=== PATIENT | male | born 1950 | race Caucasian/White ===

== ENCOUNTER 2018-12-03 12:41 | Emergency (ER) | payer OTHER ==
[2018-12-03 12:50] VITALS: BP 170/81; PULSE 76; TEMP 98.1
--- NOTE | 2018-12-03 13:02 | ED ---
Male Urogenital HPI - General Chief complaint: Urogenital Stated complaint: Trouble urinating Time Seen by Provider: 12/03/18 12:51 Source: patient, RN notes reviewed Mode of arrival: ambulatory Limitations: no limitations - History of Present Illness Initial comments: 68-year-old male presents emergency Department with chief complaint of difficulty urinating. Patient had decreased urine output as far as urine flow. Patient states he has hesitancy. He does admit that he's had a prior prostate cancer which she had radiation therapy. Patient states that he used to be on Flomax with is not currently on it. Patient called his physician who recommended cold emergency Department secondary to his symptoms. Patient states that he has not seen his urology physician [facility] [employer] [facility] cancer because he had a normal checkup. Patient states that he was seen Dr. della treviño. Patient denies any abdominal distention, nausea vomiting diarrhea constipation. - Related Data Home Medications Medication Instructions Recorded Confirmed Ferrous Sulfate [Iron] 325 mg PO BID 12/03/18 12/03/18 Previous Rx's Medication Instructions Recorded Sulfamethox-Tmp 800-160Mg [Bactrim 1 each PO Q12HR #14 tab 12/03/18 Ds] Tamsulosin [Flomax] 0.4 mg PO DAILY #14 cap 12/03/18 Allergies Allergy/AdvReac Type Severity Reaction Status Date / Time Penicillins Allergy Unknown Verified 12/03/18 13:49 Childhood Review of Systems ROS Statement: Those systems with pertinent positive or pertinent negative responses have been documented in the HPI. ROS Other: All systems not noted in ROS Statement are negative. Past Medical History Past Medical History: Cancer Additional Past Medical History / Comment(s): prostate CA 15 yrs ago, anemia History of Any Multi-Drug Resistant Organisms: None Reported Past Surgical History: Orthopedic Surgery Additional Past Surgical History / Comment(s): left shoulder Past Psychological History: No Psychological Hx Reported Smoking Status: Never smoker Past Alcohol Use History: None Reported Past Drug Use History: None Reported General Exam Limitations: no limitations General appearance: alert, in no apparent distress Head exam: Present: atraumatic, normocephalic, normal inspection Neck exam: Present: normal inspection. Absent: tenderness, meningismus, lymphadenopathy Respiratory exam: Present: normal lung sounds bilaterally. Absent: respiratory distress, wheezes, rales, rhonchi, stridor Cardiovascular Exam: Present: regular rate, normal rhythm, normal heart sounds. Absent: systolic murmur, diastolic murmur, rubs, gallop, clicks GI/Abdominal exam: Present: soft, normal bowel sounds. Absent: distended, tenderness, guarding, rebound, rigid Back exam: Absent: CVA tenderness (R), CVA tenderness (L) Skin exam: Present: warm, dry, intact, normal color. Absent: rash Course Vital Signs 12/03/18 12:46 Temperature 98.1 F Pulse Rate 76 Respiratory 18 Rate Blood Pressure 170/81 O2 Sat by Pulse 98 Oximetry Medical Decision Making - Medical Decision Making 68-year-old male presents emergency Department for increased urinary frequency. Patient most likely is underlying BPH issues. Patient be restarted on his Flomax and he also had a white cells concerning for possible urinary tract infection. Patient placed on antibiotics for 7 days and will follow-up with urology. Return parameters were discussed. Patient had minimal residual bladder scan - Lab Data Lab Results 12/03/18 Range/Units 13:05 Urine Color Yellow Urine Appearance Clear (Clear) Urine pH 6.0 (5.0-8.0) Ur Specific [place] 1.024 (1.001-1.035) Urine Protein Negative (Negative) Urine Glucose (UA) Negative (Negative) Urine Ketones Negative (Negative) Urine Blood Negative (Negative) Urine Nitrite Negative (Negative) Urine Bilirubin Negative (Negative) Urine Urobilinogen <2.0 (<2.0) mg/dL Ur Leukocyte Esterase Trace H (Negative) Urine RBC 1 (0-5) /hpf Urine WBC 8 H (0-5) /hpf Urine Mucus Rare H (None) /hpf Disposition Clinical Impression: Polyuria, UTI (urinary tract infection), BPH (benign prostatic hyperplasia) Disposition: HOME SELF-CARE Condition: Stable Instructions (If sedation given, give patient instructions): Urinary Tract Infection in Men (ED) Additional Instructions: Please return to the Emergency Department if symptoms worsen or any other concerns. Prescriptions: Sulfamethox-Tmp 800-160Mg [Bactrim Ds] 1 each PO Q12HR #14 tab Tamsulosin [Flomax] 0.4 mg PO DAILY #14 cap Is patient prescribed a controlled substance at d/c from ED?: No Referrals: Henrry Palacio DO [Primary Care Provider] - 1-2 days Time of Disposition: 13:51
[2018-12-03 13:35] LABS: Appearance,Urine Clear (Clear); Bilirubin,Urine Negative (Negative); Blood,Urine Negative (Negative); Color,Urine Yellow; Glucose,Urine (UA) Negative (Negative); Ketones,Urine Negative (Negative); Leukocyte Esterase,Urine Trace (Negative); Mucus,Urine Rare /hpf; Nitrite,Urine Negative (Negative); Protein,Urine Negative (Negative); RBC,Urine 1 /hpf (0-5); Specific Gravity,Urine 1.024 (1.001-1.035); Urobilinogen,Urine <2.0 mg/dL (<2.0)
[2018-12-03] MEDS ORDERED: TAMSULOSIN 0.4 MG CAP.ER.24H PO STA (13:51)
[2018-12-03 14:09] VITALS: RESP 16
== END 2018-12-03 14:05 | disposition home or self-care (01) ==
LOC: EC 12:41
DX: N40.0 Benign prostatic hyperplasia without lower urinary tract symptoms (principal); N39.0 Urinary tract infection, site not specified; R35.8 Other polyuria; D64.9 Anemia, unspecified; Z85.46 Personal history of malignant neoplasm of prostate; Z79.899 Other long term (current) drug therapy; Z88.0 Allergy status to penicillin
CPT/HCPCS: 81001; 99284

== ENCOUNTER 2018-12-31 03:55 | Emergency (ER) | payer OTHER, MEDICARE ==
[2018-12-31 04:03] VITALS: TEMP 98.5
[2018-12-31 04:59] LABS: Appearance,Urine Clear (Clear); Bilirubin,Urine Negative (Negative); Blood,Urine Negative (Negative); Color,Urine Yellow; Glucose,Urine (UA) Negative (Negative); Ketones,Urine Negative (Negative); Leukocyte Esterase,Urine Negative (Negative); Nitrite,Urine Negative (Negative); PH, Urine 5.5 (5.0-8.0); Protein,Urine Negative (Negative); Specific Gravity,Urine 1.019 (1.001-1.035); Urobilinogen,Urine <2.0 mg/dL (<2.0)
--- NOTE | 2018-12-31 05:03 | ED ---
General Adult HPI - General Chief complaint: Urogenital Stated complaint: Male Time Seen by Provider: 12/31/18 04:17 Source: patient Mode of arrival: ambulatory Limitations: no limitations - History of Present Illness Initial comments: Dictation was produced using [employer] dictation software. please excuse any grammatical, word or spelling errors. 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 History of Present Illness: She is 68-year-old male who has past medical history of prostate cancer. Approximately 10 years ago he began having problems with urinary retention. He is a patient of Dr. Bakari rico. Patient seen Dr. Nesbitt 3 weeks ago. Discussion was had with urologist for possible intervention to open urethral versus bladder constriction. Over the last 2-3 days patient has been having worsening urinary retention. Discusses that he had a episode where he had to go under anesthesia in order for Alba catheter to be placed. Patient reports he still able to get some urine out with Valsalva maneuver. The ROS documented in this emergency department record has been reviewed and confirmed by me. Those systems with pertinent positive or negative responses have been documented in the HPI. All other systems are other negative and/or noncontributory. PHYSICAL EXAM: General Impression: Alert and oriented x3, not in acute distress HEENT: Normocephalic atraumatic, extra-ocular movements intact, pupils equal and reactive to light bilaterally, mucous membranes moist. Cardiovascular: Heart regular rate and rhythm, S1&S2 audible, no murmurs, rubs or gallops Chest: Lungs clear to auscultation bilaterally, no rhonchi, no wheeze, no rales Abdomen: Suprapubic fullness Musculoskeletal: Pulses present and equal in all extremities, no peripheral edema Motor: no focal deficits noted Neurological: CN II-XII grossly intact, no focal motor or sensory deficits noted Skin: Intact with no visualized rashes Psych: Normal affect and mood ED course: 68-year-old male past medical history of prostate disease presents with urinary retention. Vital signs upon arrival are within acceptable limits. Blood pressure is measured at 192/95. Bladder scan was performed showing approximately 350 mL of retained urine. Attempt was made to place Alba catheter. 16-Persian Alba catheter was placed with no success. 16 coud and 14 coud was attempted with no success. Discussed patient case with Dr. Moran who will attempt to place Alba catheter at bedside. Patient gives signed out to Dr. Cao. Dr. Moran is seen at bedside. - Related Data Home Medications Medication Instructions Recorded Confirmed Ferrous Sulfate [Iron] 325 mg PO BID 12/03/18 12/31/18 Previous Rx's Medication Instructions Recorded Tamsulosin [Flomax] 0.4 mg PO DAILY #14 cap 12/03/18 Allergies Allergy/AdvReac Type Severity Reaction Status Date / Time Penicillins Allergy Unknown Verified 12/31/18 04:03 Childhood Review of Systems ROS Statement: Those systems with pertinent positive or pertinent negative responses have been documented in the HPI. ROS Other: All systems not noted in ROS Statement are negative. Past Medical History Past Medical History: Cancer Additional Past Medical History / Comment(s): prostate CA 15 yrs ago, anemia History of Any Multi-Drug Resistant Organisms: None Reported Past Surgical History: Orthopedic Surgery Additional Past Surgical History / Comment(s): left shoulder Past Psychological History: No Psychological Hx Reported Smoking Status: Former smoker Past Alcohol Use History: None Reported Past Drug Use History: None Reported General Exam Limitations: no limitations Course Vital Signs 12/31/18 12/31/18 03:58 06:54 Temperature 98.5 F 98.5 F Pulse Rate 92 73 Respiratory 20 18 Rate Blood Pressure 192/95 153/84 O2 Sat by Pulse 97 95 Oximetry Medical Decision Making - Lab Data Result diagrams: 12/31/18 05:45 Lab Results 12/31/18 12/31/18 Range/Units 04:20 05:45 Sodium 140 (137-145) mmol/L Potassium 4.3 (3.5-5.1) mmol/L Chloride 110 H (98-107) mmol/L Carbon Dioxide 21 L (22-30) mmol/L Anion Gap 9 mmol/L BUN 12 (9-20) mg/dL Creatinine 0.79 (0.66-1.25) mg/dL Est GFR (CKD-EPI)AfAm >90 (>60 ml/min/1.73 sqM) Est GFR (CKD-EPI)NonAf >90 (>60 ml/min/1.73 sqM) Glucose 124 H (74-99) mg/dL Calcium 9.3 (8.4-10.2) mg/dL Urine Color Yellow Urine Appearance Clear (Clear) Urine pH 5.5 (5.0-8.0) Ur Specific [place] 1.019 (1.001-1.035) Urine Protein Negative (Negative) Urine Glucose (UA) Negative (Negative) Urine Ketones Negative (Negative) Urine Blood Negative (Negative) Urine Nitrite Negative (Negative) Urine Bilirubin Negative (Negative) Urine Urobilinogen <2.0 (<2.0) mg/dL Ur Leukocyte Esterase Negative (Negative) Disposition Referrals: Henrry Palacio DO [Primary Care Provider] - 1-2 days
[2018-12-31 06:12] LABS: African American GFR (CKD) >90 (>60 ml/min/1.73 sqM); Anion Gap 9 mmol/L; Blood Urea Nitrogen 12 mg/dL (9-20); Calcium 9.3 mg/dL (8.4-10.2); Carbon Dioxide 21 mmol/L (22-30); Chloride 110 mmol/L (98-107); Glucose 124 mg/dL (74-99); Potassium 4.3 mmol/L (3.5-5.1); Sodium 140 mmol/L (137-145)
[2018-12-31 06:55] VITALS: BP 153/84; PULSE 73; RESP 18
--- NOTE | 2018-12-31 07:31 | P.GSCN ---
History of Present Illness Consult date: 12/31/18 Reason for Consult: Urinary retention and inability to insert Alba catheter History of present illness: The patient is a 68-year-old male with a history of increasing difficulty voiding for the last 2 or 3 days. He says that he was unable to void anything other than very small amounts yesterday evening and came to the emergency room for evaluation. Urinalysis was unremarkable. Attempts were made to insert a 16-Chilean and a 14-Chilean coud catheter but the emergency room staff was unable to perform this . Bladder scan showed approximately 400 mL in the bladder. I was contacted to evaluate the patient. The patient is well known to me and was last seen by me 2 or 3 weeks ago in the office. He has a history of prostate cancer treated with a combination of external beam radiation therapy and brachytherapy around 2004. I believe he may have had a urethral stricture that required either dilation or internal urethrotomy several years later. When seen by me in the office 2 or 3 weeks ago he was complaining of a slow urinary flow and was started on tamsulosin 0.4 mg daily. He says that this has not been particularly helpful. Prior to the last 2 or 3 days patient said that he had been voiding every 1-1/2 hours during the day and night. He denied any gross hematuria or dysuria. He says that his urine flow was actually relatively good 6 months ago. Review of Systems - Constitutional Denies chills, Denies fever - Gastrointestinal Reports as per HPI, Denies change in bowel habits - Genitourinary Reports as per HPI Past Medical History Past Medical History: Cancer Additional Past Medical History / Comment(s): prostate CA 15 yrs ago-treated with external beam radiation therapy and brachytherapy, anemia History of Any Multi-Drug Resistant Organisms: None Reported Past Surgical History: Orthopedic Surgery Additional Past Surgical History / Comment(s): left shoulder Past Psychological History: No Psychological Hx Reported Smoking Status: Former smoker Past Alcohol Use History: None Reported Past Drug Use History: None Reported Medications and Allergies Home Medications Medication Instructions Recorded Confirmed Type Ferrous Sulfate [Iron] 325 mg PO BID 12/03/18 12/31/18 History Tamsulosin [Flomax] 0.4 mg PO DAILY #14 cap 12/03/18 12/31/18 Rx Allergies Allergy/AdvReac Type Severity Reaction Status Date / Time Penicillins Allergy Unknown Verified 12/31/18 04:03 Childhood Surgical - Exam Vital Signs Temp Pulse Resp BP Pulse Ox 98.5 F 92 20 192/95 97 12/31/18 03:58 12/31/18 03:58 12/31/18 03:58 12/31/18 03:58 12/31/18 03:58 - General well developed, well nourished, moderate pain - ENT no hearing loss - Respiratory normal respiratory effort - Abdomen Abdomen: soft, tender (Suprapubic area) - Genitourinary normal penis with no external lesions, testicles non-tender Results - Labs 12/31/18 05:45 Abnormal Lab Results - Last 24 Hours (Table) 12/31/18 Range/Units 05:45 Chloride 110 H (98-107) mmol/L Carbon Dioxide 21 L (22-30) mmol/L Glucose 124 H (74-99) mg/dL Diabetes panel 12/31/18 Range/Units 05:45 Sodium 140 (137-145) mmol/L Potassium 4.3 (3.5-5.1) mmol/L Chloride 110 H (98-107) mmol/L Carbon Dioxide 21 L (22-30) mmol/L BUN 12 (9-20) mg/dL Creatinine 0.79 (0.66-1.25) mg/dL Glucose 124 H (74-99) mg/dL Calcium 9.3 (8.4-10.2) mg/dL Calcium panel 12/31/18 Range/Units 05:45 Calcium 9.3 (8.4-10.2) mg/dL Pituitary panel 12/31/18 Range/Units 05:45 Sodium 140 (137-145) mmol/L Potassium 4.3 (3.5-5.1) mmol/L Chloride 110 H (98-107) mmol/L Carbon Dioxide 21 L (22-30) mmol/L BUN 12 (9-20) mg/dL Creatinine 0.79 (0.66-1.25) mg/dL Glucose 124 H (74-99) mg/dL Calcium 9.3 (8.4-10.2) mg/dL Adrenal panel 12/31/18 Range/Units 05:45 Sodium 140 (137-145) mmol/L Potassium 4.3 (3.5-5.1) mmol/L Chloride 110 H (98-107) mmol/L Carbon Dioxide 21 L (22-30) mmol/L BUN 12 (9-20) mg/dL Creatinine 0.79 (0.66-1.25) mg/dL Glucose 124 H (74-99) mg/dL Calcium 9.3 (8.4-10.2) mg/dL Assessment and Plan (1) Urinary retention Narrative/Plan: The cause of the patient's urinary retention is not clear. I was able to successfully insert a 14-Chilean coud catheter which drained between 400 and 500 mL of clear urine. There appeared to be some slight narrowing in the region of the bulbomembranous junction which could be related to a urethral stricture however underlying BPH could also cause the same problem. The patient will be discharged with the catheter and will remove the catheter on the morning of 01/04. He will increase his tamsulosin to 0.8 mg daily. He was seen by me in the afternoon on 01/04. Current Visit: Yes Status: Acute Code(s): R33.9 - RETENTION OF URINE, UNSPECIFIED SNOMED Code(s): 254048244
--- NOTE | 2019-01-01 05:18 | CDI ---
Dear Rob Palomo DO: Please do addendum disposition. Thank you, Catalina Dave, Electromechanisms Design Drafter. If you have any questions, please contact Home Service Consultant at [phone]. [facility]
== END 2018-12-31 08:07 | disposition home or self-care (01) ==
LOC: EC 03:55
DX: R33.9 Retention of urine, unspecified (principal); D64.9 Anemia, unspecified; Z87.891 Personal history of nicotine dependence; Z88.0 Allergy status to penicillin; Z79.899 Other long term (current) drug therapy; Z85.46 Personal history of malignant neoplasm of prostate
CPT/HCPCS: 36415; 51702; 51798; 80048; 81003; 87086; 99284

== ENCOUNTER 2019-09-13 16:08 | Emergency (ER) | payer OTHER, MEDICARE ==
[2019-09-13 16:13] VITALS: BP 164/98; PULSE 80; RESP 18; TEMP 98.3
--- NOTE | 2019-09-13 16:36 | ED ---
ENT HPI - General Chief complaint: ENT Stated complaint: sent by /blood vessel in eye eruption Time Seen by Provider: 09/13/19 16:15 Source: patient Mode of arrival: ambulatory Limitations: no limitations - History of Present Illness Initial comments: 68-year-old male presenting for possible broken blood vessels in the right eye. Patient states that he has had a slight cough he states that he noticed today broken glasses inside redness. Denies any pain. Patient denies any visual changes denies any headache nausea vomiting or scalp tenderness. Patient denies any other complaints denies any trauma or welding denies any grinding or metals. Patient has no other complaints upon arrival patient appears well no signs of acute distress no photophobia noted. Patient wears prescription glasses. - Related Data Home Medications Medication Instructions Recorded Confirmed Ferrous Sulfate [Iron] 325 mg PO BID 12/03/18 12/31/18 Previous Rx's Medication Instructions Recorded Tamsulosin [Flomax] 0.4 mg PO DAILY #14 cap 12/03/18 Allergies Allergy/AdvReac Type Severity Reaction Status Date / Time Penicillins Allergy Unknown Verified 09/13/19 16:13 Childhood Review of Systems ROS Statement: Those systems with pertinent positive or pertinent negative responses have been documented in the HPI. ROS Other: All systems not noted in ROS Statement are negative. Past Medical History Past Medical History: Cancer Additional Past Medical History / Comment(s): prostate CA 15 yrs ago, anemia History of Any Multi-Drug Resistant Organisms: None Reported Past Surgical History: Orthopedic Surgery Additional Past Surgical History / Comment(s): left shoulder Past Psychological History: No Psychological Hx Reported Smoking Status: Former smoker Past Alcohol Use History: None Reported Past Drug Use History: None Reported General Exam - General Exam Comments Initial Comments: General: The patient is awake and alert, in no distress, and does not appear acutely ill. Eye: +3 mm pupils are equal, round and reactive to light, extra-ocular mo vements are intact. No nystagmus. There is normal conjunctiva bilaterally. No signs of icterus. No photophobia. Ears, nose, mouth and throat: There are moist mucous membranes and no oral lesions. OD 20/25, OS 20/25, there is subconjunctival hemorrhage, 180 degrees. IOP 16OD, 15OS. Neck: The neck is supple, there is no tenderness or JVD. Cardiovascular: There is a regular rate and rhythm. No murmur, rub or gallop is appreciated. Respiratory: Lungs are clear to auscultation, respirations are non-labored, breath sounds are equal. No wheezes, stridor, rales, or rhonchi. Gastrointestinal: [Soft, non-distended, non-tender abdomen without masses or organomegaly noted. There is no rebound or guarding present. No CVA tenderness. Bowel sounds are unremarkable.] Musculoskeletal: Normal ROM, no tenderness. Strength 5/5. Sensation intact. Pulses equal bilaterally 2+. Neurological: A&O x 3. CN II-XII intact grossly, There are no obvious motor or sensory deficits. Coordination appears grossly intact. Speech is normal. Skin: Skin is warm and dry and no rashes or lesions are noted. Psychiatric: Cooperative, appropriate mood & affect, normal judgment. Limitations: no limitations Course Vital Signs 09/13/19 09/13/19 16:10 16:52 Temperature 98.3 F 98.3 F Pulse Rate 80 80 Respiratory 18 18 Rate Blood Pressure 164/98 164/98 O2 Sat by Pulse 98 98 Oximetry Medical Decision Making - Medical Decision Making 68-year-old male presented for right eye redness. No pain no scalp tenderness. Pressures within normal limits. Visual acuity intact. Patient states he has had a cough physical examination findings consistent with a subconjunctival hemorrhage at this time feel patient is stable for discharge with primary care follow-up. Return parameters were discussed the patient was discharged appearing well after discussing the case with Dr. Willis Disposition Clinical Impression: Subconjunctival hemorrhage of right eye Disposition: HOME SELF-CARE Condition: Good Instructions (If sedation given, give patient instructions): Subconjunctival Hemorrhage (ED) Additional Instructions: Please use medication as discussed. Please follow-up with family doctor in the next 2 days. Please return to emergency room if the symptoms increase or worsen or for any other concerns. Is patient prescribed a controlled substance at d/c from ED?: No Referrals: Henrry Palacio DO [Primary Care Provider] - 1-2 days Time of Disposition: 16:35
== END 2019-09-13 16:52 | disposition home or self-care (01) ==
LOC: EC 16:08
DX: H11.31 Conjunctival hemorrhage, right eye (principal); R05 Cough; D64.9 Anemia, unspecified; Z79.899 Other long term (current) drug therapy; Z88.0 Allergy status to penicillin; Z87.891 Personal history of nicotine dependence; Z85.46 Personal history of malignant neoplasm of prostate
CPT/HCPCS: 99283

== ENCOUNTER → 2024-11-01 | Outpatient (CLI) | payer MEDICARE ==
[2024-11-01 15:39] LABS: HGB 10.8 g/dL (13.0-17.0); MCH 22.9 pg (27.0-32.0); MCHC 27.7 g/dL (32.0-37.0); MCV 82.6 FL (80.0-97.0); Mean Platelet Volume 10.5 FL (9.5-12.2); NRBC Per 100 WBC 0 X 10*3/uL (0.00-0.01); Platelet Count 383 X 10*3/uL (140-440); RBC 4.72 X 10*6/uL (4.40-5.60); RDW 19.8 % (11.5-14.5); WBC 7.62 X 10*3/uL (4.50-10.00)
[2024-11-01 15:57] LABS: Blood Urea Nitrogen 14.9 mg/dL (9.0-27.0); Carbon Dioxide 23.1 mmol/L (21.6-31.8); Chloride 106 mmol/L (96-109); Potassium 4.3 mmol/L (3.5-5.5); Sodium 138 mmol/L (135-145)
== END | disposition home or self-care (01) ==
LOC: LABPAT 08:20
PROVIDERS: ATTEND Internal Medicine Interventional Cardiology
DX: Z01.812 Encounter for preprocedural laboratory examination (principal); R94.39 Abnormal result of other cardiovascular function study; R06.02 Shortness of breath
CPT/HCPCS: 80051; 82565; 84520; 85027

== ENCOUNTER 2024-11-02 07:04 | Day surgery (SDC) | payer MEDICARE, OTHER ==
[~2024-11-02 07:04] MED LIST: ALPRAZolam 0.25 MG TAB PO PRN; ALPRAZolam 0.5 MG TAB PO PRN; HEPARIN SODIUM,PORCINE (1 ML) 2,500 UNIT in SODIUM CHLORIDE 0.9% 250 ML IRRIGATION PRN; HEPARIN SODIUM,PORCINE 10,000 UNIT in SODIUM CHLORIDE 0.9% 1,000 ML IRRIGATION PRN; NITROGLYCERIN SL TABS 0.4 MG TAB SUBLINGUAL PRN
[2024-11-02] MEDS: IV FLUID CONTINUATION 1,000 ML IV ONE (07:29)
[2024-11-02] MEDS: ASPIRIN 325 MG TAB PO STA (07:37)
[2024-11-02] MEDS: SODIUM CHLORIDE 0.9% 1,000 ML in EMPTY BAG 1 BAG IV SCH ×2 (07:37→10:45)
[2024-11-02 07:45] VITALS: RESP 16; TEMP 97.9
[2024-11-02] MEDS: HEPARIN SODIUM,PORCINE (1 ML) 2,500 UNIT in SODIUM CHLORIDE 0.9% 250 ML IRRIGATION ONE (08:55)
[2024-11-02] MEDS: HEPARIN SODIUM,PORCINE 10,000 UNIT in SODIUM CHLORIDE 0.9% 1,000 ML IRRIGATION ONE (08:55)
[2024-11-02] MEDS: fentaNYL (PF) 50 MCG/ML 2 ML AMP IVP ONE (09:31)
[2024-11-02] MEDS: VERAPAMIL SYRINGE (5 MG/10 ML) INTRAARTER ONE (09:35)
[2024-11-02] MEDS: LIDOCAINE 1% INJ 10MG/ML (20 ML MDV) SQ ONE (09:35)
[2024-11-02] MEDS: CLOPIDOGREL 75 MG TAB PO ONE (09:55)
[2024-11-02] MEDS: IOPAMIDOL-370 100ML BTL INJ ONE ×2 (10:25→10:26)
[2024-11-02] MEDS ORDERED: ZOLPIDEM 5 MG TAB PO PRN (10:39)
[2024-11-02] MEDS ORDERED: RX INFO: IV CONTRAST WAS GIVEN 1 EACH MISC MISCELLANE PRN (10:39)
[2024-11-02] MEDS ORDERED: ATROPINE SULFATE 0.1 MG/ML 10ML SYRINGE IV PRN (10:39)
[2024-11-02] MEDS ORDERED: NITROGLYCERIN SL TABS 0.4 MG TAB SUBLINGUAL PRN (10:39)
[2024-11-02] MEDS ORDERED: MAG HYDROX/AL HYDROX/SIMETH 30 ML CUP PO PRN (10:39)
--- NOTE | 2024-11-02 10:59 | P.CARDCATH ---
Date of Procedure: 11/02/24 Description of Procedure: Cardiac Catheterization: The patient is a 73-year-old male who presented with symptoms of progressive dyspnea, he underwent an MPI that showed evidence of stress-induced ischemia of moderate size. Recommendations were made regarding cardiac catheterization, the risks and the complications were discussed with the patient who is in full understanding and agreement. Procedure Description: Patient was brought to lab systems analyst in fasting semi-sedated state after receiving Fentanyl and Benadryl achieiving moderate conscious sedated state. Using Xylocaine Anesthesia and modified Seldinger technique, a 6-Kazakh sheath was introduced in the right radial artery . Subsequently, selective coronary angiography was performed using a 5-Kazakh 3.5 bend Nette catheter. Multiple views of the coronary artery including hemiaxial views were obtained. The 5 Kazakh pigtail catheter was used to cross the aortic valve and LVEDP was calculated. PCI: After removing the catheters a 6 Kazakh CLS 3.5 guiding catheter was introduced into the system and after cannulating the left main a 0.014 BMW J-wire was advanced in the first diagonal branch. Subsequently 2.5 x 12 mm trek balloon was advanced and multiple inflations were done at 8 ronit. Attempt to advanced a [email or web address] eye IVUS was unsuccessful. The catheter was removed and a 6 Kazakh guide liner was advanced and repeat inflations with the balloon was performed subsequently the IVUS was advanced and images revealed the distal lum en of 2.75 to 3 mm in diameter, with about 90 to 100 degree calcifications. After removing the catheter repeat inflations with the balloon was performed subsequently a 2.5 x 23 mm Xience carmela point stent was advanced and deployed at 16 ronit. After the last inflation the balloon and the wire were removed images were obtained and revealed stable successful stenting. Following that, catheter and sheath were removed. Hemostasis was obtained with deployment of vascular band . There was no immediate complication. Patient was returned to room in stable condition. Of note, the patient received a total of 8500 units of intravenous heparin as well as intra-arterial verapamil. He received clopidogrel loading dose. He had mild EKG changes and chest discomfort that resolved at the end of the procedure. Findings: Fluoroscopy: Calcifications of the proximal LAD was performed Left main: This is a large size vessel, trifurcating into LAD, left circumflex and ramus intermedius, left main has no obstructive disease LAD: This is a large size vessel, reaching to the apex with a wraparound apex segment giving rise to a large proximal diagonal branch. The LAD has diffuse intimal disease of 20 to 30%. The mid segment has a 60% stenosis beyond that the vessel is small in caliber. The first diagonal branch is a large branch that has an 80 to 90% lesion proximally after the takeoff Left circumflex: This is a large dominant vessel, bifurcating distally to PDA and PLV. Giving rise to 2 obtuse marginal branch. The left circumflex has diffuse intimal disease throughout its course with area of stenosis of 30 to 40% RCA: This is a small nondominant vessel that has a 60 % stenosis in the midsegment, the rest of the vessel is small in caliber Left Ventriculogram: Not performed Hemodynamics: There was no gradient across aortic valve, LVEDP was 12-14 mmHg Conclusion: 1. Calcified coronary arteries 2. Severe stenosis in a large first diagonal branch 3. Mild to moderate disease in the LAD and left circumflex 4. Significant disease in the mid nondominant RCA Successful stenting of the first diagonal branch with reduction stenosis from 80% to less than 5% Recommendations: The patient will continue on aspirin and clopidogrel without any interruption for 6 months in addition to aggressive coronary risks modification, maintaining LDL to less than 70 mg/dL. The findings and the recommendations were discussed with the patient and the family and they were in full understanding and agreement. Duration of sedation is 52 minutes.
[2024-11-02 14:52] VITALS: BP 140/67; PULSE 72
[2024-11-02] MEDS ORDERED: METOPROLOL TARTRATE 25 MG TAB PO SCH (21:00)
[2024-11-02] MEDS ORDERED: ATORVASTATIN 80 MG TAB PO SCH (21:00)
[2024-11-03] MEDS ORDERED: ASPIRIN 81 MG PO SCH (09:00)
[2024-11-03] MEDS ORDERED: CLOPIDOGREL 75 MG TAB PO SCH (09:00)
[2024-11-03] MEDS ORDERED: ISOSORBIDE MONONITRATE ER 30 MG TAB.ER.24H PO SCH (09:00)
== END 2024-11-02 14:39 | disposition home or self-care (01) ==
LOC: CATHCVL 07:04
PROVIDERS: ATTEND Internal Medicine Interventional Cardiology
DX: I25.10 Atherosclerotic heart disease of native coronary artery without angina pectoris (principal); Z87.891 Personal history of nicotine dependence; Z79.899 Other long term (current) drug therapy
CPT/HCPCS: 92978; 93458; 99152; 99153; C9600; C1769 ×2; C1894; C1887; C1725; C1753; J1644 ×3; J2003; J3010; Q9967

== ENCOUNTER → 2025-01-18 | Outpatient (CLI) | payer MEDICARE ==
[2025-01-18 15:37] LABS: ALT 16 U/L (10-49); AST 20 U/L (14-35); Albumin 4.1 g/dL (3.8-4.9); Albumin/Globulin Ratio 1.86 Ratio (1.60-3.17); Alkaline Phosphatase 60 U/L (41-126); Anion Gap 10.40 mmol/L (4.00-12.00); BUN/Creat Ratio 14.50 Ratio (12.00-20.00); Blood Urea Nitrogen 17.4 mg/dL (9.0-27.0); Calcium 9.2 mg/dL (8.7-10.3); Carbon Dioxide 23.6 mmol/L (21.6-31.8); Chloride 107 mmol/L (96-109); Cholesterol 88.00 mg/dL (0.00-200.00); Globulin 2.2 g/dL (1.6-3.3); Glucose 101 mg/dL (70-110); HDL Cholesterol 32.80 mg/dL (40.00-60.00); LDL Cholesterol,Calculated 41.5 mg/dL (0.0-131.0); Potassium 4.6 mmol/L (3.5-5.5); Sodium 141 mmol/L (135-145); Total Protein 6.3 g/dL (6.2-8.2); Triglycerides 68.70 mg/dL (0.00-149.00); VLDL Calculation 13.74 mg/dL (5.00-40.00)
== END | disposition home or self-care (01) ==
LOC: LABWHC1 08:49
PROVIDERS: ATTEND Internal Medicine Interventional Cardiology
DX: E78.2 Mixed hyperlipidemia (principal)
CPT/HCPCS: 36415; 80053; 80061